=== PATIENT | male | born 1955 | race Caucasian/White ===

== ENCOUNTER 2021-12-17 13:24 | Emergency (ER) | payer MEDICARE ==
[~2021-12-17] VITALS: Ht 180.3 cm; Wt 102.1 kg
[2021-12-17 13:27] VITALS: BP_SYST 174
--- NOTE | 2021-12-17 13:27 | NUR ---
PT TRIAGED AND PLACED IN ER WAITING ROOM FOR AVAILABLE BED TO BECOME AVAILABLE, CN AND MADE AWARE
--- NOTE | 2021-12-17 13:30 | NUR ---
PT CAME IN WITH FRIEND AFTER HELPING FRIEND TRIMMING TREE THINKS SAP GOT INTO BOTH EYE, RED, IRRITATED, DIFFICUTY SEEING. HAS RINSED WITH WATER SEVERAL TIMES, TRIED OTC DROPS AND TOOK BENADRYL PRIOR TO ARRIVAL. PT IS AMBULATORY, AAOX4, VSS
--- NOTE | 2021-12-17 15:22 | NUR ---
KURTIS VENEGAS AT THE BEDSIDE EXAMINING PT Addendum: 12/17/21 at 1537 by [email or web address] KURTIS VENEGAS IN TRIAGE EXAMINING PT
[2021-12-17] MEDS ORDERED: SULF5DRO EACH EYE (15:27)
[2021-12-17 15:35] VITALS: BP_SYST 174
[2021-12-17] MEDS: TETRACAINE HCL/PF 0.5% OPHTHALMIC DROPS 4 ML OP ONE (15:35)
--- NOTE | 2021-12-17 15:37 | NUR ---
Patient given written and verbal discharge instructions and verbalizes understanding. ER MD discussed with patient the results and treatment provided. Patient in stable condition. ID arm band removed. Rx of BLEPH-10 DROPS given. Patient educated on pain management and to follow up with PMD. Pain Scale 0/10. Opportunity for questions provided and answered. Medication side effect fact sheet provided.
== END 2021-12-17 15:37 | disposition home or self-care (01) ==
LOC: SED 13:24
DX: H10.211 Acute toxic conjunctivitis, right eye (principal); H10.212 Acute toxic conjunctivitis, left eye; I10 Essential (primary) hypertension; E11.9 Type 2 diabetes mellitus without complications; Z79.899 Other long term (current) drug therapy
CPT/HCPCS: 99283